=== PATIENT | male | born 1970 | race African-American/Black ===

== ENCOUNTER 2017-10-07 11:16 | Emergency (ER) | payer SELFPAY ==
[~2017-10-07] VITALS: Ht 180.3 cm; Wt 117.0 kg
[2017-10-07 11:18] VITALS: BP 140/90
== END 2017-10-07 15:43 | disposition left against medical advice (07) ==
LOC: ED 15:30
DX: M54.9 Dorsalgia, unspecified (principal); Z53.21 Procedure and treatment not carried out due to patient leaving prior to being seen by health care provider

== ENCOUNTER 2018-11-13 01:11 | Emergency (ER) | payer SELFPAY ==
[~2018-11-13] VITALS: Ht 182.9 cm; Wt 112.5 kg
[2018-11-13] MEDS ORDERED: HYDROmorphone 1 MG/ML, 1ML VIAL ONE (01:27)
[2018-11-13] MEDS ORDERED: ONDANSETRON 2MG/ML, 2ML ONE (01:27)
[2018-11-13] MEDS ORDERED: KETOROLAC 30 MG/1 ML ONE (01:28)
[2018-11-13] MEDS ORDERED: HYDROmorphone 1 MG/ML, 1ML AMP IVPush PRN (01:30)
[2018-11-13] MEDS ORDERED: SODIUM CHLORIDE FLUSH 10ML SYR IVF ONE (01:30)
[2018-11-13] MEDS ORDERED: KETOROLAC 30 MG/1 ML IVPush ONE (01:30)
[2018-11-13] MEDS ORDERED: ONDANSETRON 2MG/ML, 2ML IVPush ONE (01:30)
[2018-11-13] MEDS ORDERED: SODIUM CHLORIDE 0.9% 1,000ML IVBOLUS ONE (01:30)
--- NOTE | 2018-11-13 01:40 | NUR ---
PT MEDICATED PER OCT. RESTING ON GURNEY, MONITORS APPLIED, SIDERAILS UP X2, CALL LIGHT WITHIN REACH.
[2018-11-13 01:43] LABS: BASOPHILS # (AUTO) 0.03 x10^3/uL (0-0.1); BASOPHILS % (AUTO) 0 % (0-1); EOSINOPHILS # (AUTO) 0.08 x10^3/uL (0-0.4); EOSINOPHILS % (AUTO) 1 % (1-7); LYMPHOCYTES # (AUTO) 2.33 x10^3/uL (1-3.4); LYMPHOCYTES % (AUTO) 16 % (22-44); MD NO; MEAN CORPUSCULAR HEMOGLOBIN 26.7 pg (27.5-34.5); MEAN PLATELET VOLUME 7.9 fL (7.4-10.4); MONOCYTES # (AUTO) 0.51 x10^3/uL (0.2-0.8); MONOCYTES % (AUTO) 4 % (2-9); NEUTROPHILS # (AUTO) 11.38 x10^3/uL (1.8-6.8); NEUTROPHILS % (AUTO) 79 % (42-75); PLATELET COUNT 326 x10^3/uL (130-400); RED BLOOD COUNT 5.91 x10^6/uL (4.38-5.82); RED CELL DISTRIBUTION WIDTH 14.9 % (9.4-14.8)
[2018-11-13 01:54] LABS: ALANINE AMINOTRANSFERASE 23 U/L (12-78); ALBUMIN 4.1 g/dL (3.4-5.0); ANION GAP 8 mmol/L (5-15); CALCIUM 9.3 mg/dL (8.5-10.1); CHLORIDE 109 mmol/L (98-107); CREATININE 1.43 mg/dL (0.7-1.3)
[2018-11-13 01:57] LABS: ALKALINE PHOSPHATASE 78 U/L (45-117); BILIRUBIN,TOTAL 0.5 mg/dL (0.2-1.0); TOTAL PROTEIN 7.8 g/dL (6.4-8.2)
--- NOTE | 2018-11-13 02:08 | NUR ---
PT TO CT. URINE SAMPLE TAKEN TO LAB
--- NOTE | 2018-11-13 02:17 | NUR ---
PT RESTING ON GURNEY, STATED PAIN IS ALOT BETTER, MONITOS IN PLACE, SIDERAILS UP X2, CALL LIGHT WITHIN REACH. AWAITING CT AND URINE RESULT
[2018-11-13 02:18] LABS: MICROSCOPIC INDICATED
[2018-11-13 02:25] LABS: CULTURE INDICATED? NO
[2018-11-13 03:16] VITALS: BP 128/84
== END 2018-11-13 03:25 | disposition home or self-care (01) ==
LOC: ED 02:41
DX: N13.2 Hydronephrosis with renal and ureteral calculous obstruction (principal)
CPT/HCPCS: 36415; 74176; 80053; 81001; 83690; 85025; 93005; 96374; 96375; 99284; J1170; J1885; J2405; J7030

== ENCOUNTER 2020-08-11 10:19 | Inpatient (IN) | payer MEDICAID, OTHER ==
[~2020-08-11] VITALS: Ht 180.3 cm; Wt 105.8 kg
--- NOTE | 2020-08-11 10:31 | NUR ---
EKG COMPLETED IN TRIAGE.
--- NOTE | 2020-08-11 10:46 | NUR ---
PT CAME IN CO OF SOB, WEAKNESS, AND BODY ACHES X 4 DAYS. PT STATES "WHENEVER I WALK AROUND I GET REALLY SOB AND TIRED". PT CONNECTED TO ALL MONITORING EQUIPMENT. BLANKET PROVIDED. PROVIDER IS BEDSIDE FOR ASSESSMENT.
[2020-08-11] MEDS ORDERED: SODIUM CHLORIDE FLUSH 10ML SYR IVF ONE (11:00)
[2020-08-11] MEDS ORDERED: SODIUM CHLORIDE 0.9% 1,000 ML IV ONE (11:00)
--- NOTE | 2020-08-11 11:00 | NUR ---
IV STARTED. LABS DRAWN. NAD.
[2020-08-11 11:10] LABS: BASOPHILS % (AUTO) 1 % (0-1); EOSINOPHILS % (AUTO) 2 % (1-7); LYMPHOCYTES % (AUTO) 28 % (22-44); MEAN CORPUSCULAR HEMOGLOBIN 26.3 pg (27.5-34.5); MEAN CORPUSCULAR HGB CONC 32.7 g/dL (33.2-36.2); MONOCYTES % (AUTO) 7 % (2-9); NEUTROPHILS % (AUTO) 63 % (42-75); PLATELET COUNT 315 x10^3/uL (130-400); RED BLOOD COUNT 5.31 x10^6/uL (4.38-5.82); RED CELL DISTRIBUTION WIDTH 15.2 % (9.4-14.8)
[2020-08-11 11:13] LABS: MD NO
[2020-08-11 11:17] LABS: ALANINE AMINOTRANSFERASE 33 U/L (12-78); ALBUMIN 3.2 g/dL (3.4-5.0); ANION GAP 4 mmol/L (5-15); CALCIUM 8.7 mg/dL (8.5-10.1); CHLORIDE 115 mmol/L (98-107)
[2020-08-11 11:20] LABS: ALKALINE PHOSPHATASE 84 U/L (45-117); BILIRUBIN,TOTAL 0.7 mg/dL (0.2-1.0); CREATININE 1.05 mg/dL (0.7-1.3); TOTAL PROTEIN 6.8 g/dL (6.4-8.2)
[2020-08-11 11:30] LABS: RAPID INFLUENZA A Negative (Negative); RAPID INFLUENZA B Negative (Negative)
[2020-08-11] MEDS ORDERED: OMNIPAQUE 350 MG/ML, 75ML BOTTLE ONE (11:33)
--- NOTE | 2020-08-11 12:20 | NUR ---
PT RESTING IN [facility]. ON CELL PHONE. NAD
[2020-08-11 13:03] LABS: TROPONIN I 0.187 ng/mL (0.000-0.045)
[2020-08-11] MEDS ORDERED: SODIUM CHLORIDE FLUSH 10ML SYR IVF PRN (13:30)
[2020-08-11 14:01] VITALS: BP 98/76
[2020-08-11] MEDS ORDERED: POLYETHYLENE GLYCOL 17 GM PACKET PO PRN (15:30)
[2020-08-11] MEDS ORDERED: GUAIFENESIN/DM 200-20MG, 10ML UDC PO PRN (15:30)
[2020-08-11] MEDS ORDERED: ENALAPRILAT 1.25 MG/ML, 2ML IVPush PRN (15:30)
[2020-08-11] MEDS ORDERED: ACETAMINOPHEN 325 MG TABLET PO PRN (15:30)
[2020-08-11] MEDS: ASCORBIC ACID 500 MG TABLET PO SCH (16:57)
[2020-08-11] MEDS ORDERED: MAGNESIUM SULFATE PMX 2GM/50ML 50 ML IV ONE (17:00)
[2020-08-11] MEDS ORDERED: FUROSEMIDE 20 MG/2 ML IV ONE (17:00)
[2020-08-11] MEDS ORDERED: HEPARIN 5,000 UNITS/ML, 1ML ONE (17:16)
[2020-08-11] MEDS: HEPARIN 5,000 UNITS/ML, 1ML SQ SCH (17:35)
[2020-08-11 17:44] LABS: TROPONIN I 0.213 ng/mL (0.000-0.045)
[2020-08-11 20:00] VITALS: BP 102/80
[2020-08-11] MEDS ORDERED: FILTER 0.22 MICRON FOR AMIODARONE IV PRN (20:30)
[2020-08-11] MEDS ORDERED: AMIODARONE 150 MG in DEXTROSE 5% 100 ML IV ONE (20:30)
[2020-08-11] MEDS ORDERED: DEXTROSE 50%, 50ML SYRINGE IVPush ONE (20:30)
[2020-08-12 00:23] VITALS: BP 128/93
[2020-08-12] MEDS: HEPARIN 5,000 UNITS/ML, 1ML SQ SCH ×3 (01:47→16:37)
[2020-08-12 01:55] VITALS: BP 130/90
[2020-08-12 05:44] LABS: BASOPHILS % (AUTO) 0 % (0-1); EOSINOPHILS % (AUTO) 1 % (1-7); LYMPHOCYTES % (AUTO) 23 % (22-44); MEAN CORPUSCULAR HEMOGLOBIN 26.2 pg (27.5-34.5); MEAN CORPUSCULAR HGB CONC 32.8 g/dL (33.2-36.2); MEAN PLATELET VOLUME 8.5 fL (7.4-10.4); MONOCYTES % (AUTO) 7 % (2-9); NEUTROPHILS % (AUTO) 69 % (42-75); PLATELET COUNT 356 x10^3/uL (130-400); RED BLOOD COUNT 5.35 x10^6/uL (4.38-5.82); RED CELL DISTRIBUTION WIDTH 15.2 % (9.4-14.8)
[2020-08-12 05:49] LABS: MD NO
[2020-08-12 05:54] LABS: ALBUMIN 3.2 g/dL (3.4-5.0); ANION GAP 7 mmol/L (5-15); CALCIUM 9.1 mg/dL (8.5-10.1); CHLORIDE 113 mmol/L (98-107)
[2020-08-12 06:07] LABS: ALANINE AMINOTRANSFERASE 28 U/L (12-78); ALKALINE PHOSPHATASE 81 U/L (45-117); BILIRUBIN,TOTAL 0.8 mg/dL (0.2-1.0); CHOL/HDL RATIO 4.3; CHOLESTEROL, TOTAL 173 mg/dL (140-239); CREATININE 1.02 mg/dL (0.7-1.3); HDL CHOL % 23 % (26-37); HDL CHOLESTEROL (DIRECT) 40 mg/dL (40-60); LDL CHOLESTEROL,CALCULATED 113 mg/dL (54-169); LDL/HDL RATIO 2.8 (0.5-3.0); TOTAL PROTEIN 6.8 g/dL (6.4-8.2); TRIGLYCERIDES 102 mg/dL (50-200); VLDL CHOLESTEROL 20 mg/dL (0-25)
[2020-08-12] MEDS ORDERED: FUROSEMIDE 20 MG/2 ML IV ONE (07:30)
[2020-08-12 08:18] VITALS: BP 134/99
[2020-08-12] MEDS: ZINC SULFATE 220 MG CAPSULE PO SCH (08:48)
[2020-08-12] MEDS: THIAMINE 100MG TABLET PO SCH (08:49)
[2020-08-12] MEDS: CHOLECALCIFEROL 5,000u TAB PO SCH (08:49)
[2020-08-12] MEDS: ASCORBIC ACID 500 MG TABLET PO SCH ×2 (08:49→16:37)
[2020-08-12 09:22] LABS: TROPONIN I 0.128 ng/mL (0.000-0.045)
[2020-08-12 10:34] LABS: MICROSCOPIC AUTO
[2020-08-12 10:43] LABS: AMPHETAMINE SCREEN, URINE Negative (Negative); BARBITURATE SCREEN, URINE Negative (Negative); BENZODIAZEPINE SCREEN, URINE Negative (Negative); CANNABINOID SCREEN, URINE Positive (Negative); COCAINE SCREEN, URINE Negative (Negative); METHADONE SCREEN, URINE Negative (Negative); OPIATE SCREEN, URINE Negative (Negative)
[2020-08-12 12:33] VITALS: BP 142/98
[2020-08-12] MEDS: AMIODARONE 450 MG in DEXTROSE 5% 241 ML IV PRN (12:46)
[2020-08-12 14:06] LABS: TROPONIN I 0.128 ng/mL (0.000-0.045)
[2020-08-12 18:46] VITALS: BP 136/99
[2020-08-13 00:18] VITALS: BP 120/80
[2020-08-13] MEDS: HEPARIN 5,000 UNITS/ML, 1ML SQ SCH ×2 (00:50→10:19)
[2020-08-13] MEDS: AMIODARONE 450 MG in DEXTROSE 5% 241 ML IV PRN ×2 (03:01→21:56)
[2020-08-13 06:05] LABS: BASOPHILS % (AUTO) 0 % (0-1); EOSINOPHILS % (AUTO) 1 % (1-7); LYMPHOCYTES % (AUTO) 18 % (22-44); MEAN CORPUSCULAR HEMOGLOBIN 25.6 pg (27.5-34.5); MEAN CORPUSCULAR HGB CONC 32.6 g/dL (33.2-36.2); MEAN PLATELET VOLUME 8.5 fL (7.4-10.4); MONOCYTES % (AUTO) 8 % (2-9); NEUTROPHILS % (AUTO) 73 % (42-75); PLATELET COUNT 331 x10^3/uL (130-400); RED BLOOD COUNT 5.59 x10^6/uL (4.38-5.82); RED CELL DISTRIBUTION WIDTH 15.5 % (9.4-14.8)
[2020-08-13 06:07] LABS: MD NO
[2020-08-13 06:20] LABS: CHLORIDE 110 mmol/L (98-107)
[2020-08-13 06:28] LABS: ALANINE AMINOTRANSFERASE 27 U/L (12-78); ALKALINE PHOSPHATASE 83 U/L (45-117); ANION GAP 6 mmol/L (5-15); BILIRUBIN,TOTAL 1.2 mg/dL (0.2-1.0); CALCIUM 8.9 mg/dL (8.5-10.1); CREATININE 1.12 mg/dL (0.7-1.3); TOTAL PROTEIN 6.8 g/dL (6.4-8.2)
[2020-08-13 07:55] VITALS: BP 136/96
[2020-08-13] MEDS: ASCORBIC ACID 500 MG TABLET PO SCH ×2 (10:19→16:54)
[2020-08-13] MEDS: ZINC SULFATE 220 MG CAPSULE PO SCH (10:19)
[2020-08-13] MEDS: CHOLECALCIFEROL 5,000u TAB PO SCH (10:19)
[2020-08-13] MEDS: THIAMINE 100MG TABLET PO SCH (10:20)
[2020-08-13] MEDS ORDERED: SODIUM CHLORIDE 0.9% 1,000 ML IV SCH (11:00)
[2020-08-13] MEDS ORDERED: CHLORHEXIDINE 15 ML UDC MM PRN (11:30)
[2020-08-13] MEDS ORDERED: INSULIN LISPRO 100 UNITS/ML, PEN SQ-INSULIN SCH (11:30)
[2020-08-13 12:02] LABS: BASOPHILS % (AUTO) 1 % (0-1); EOSINOPHILS % (AUTO) 1 % (1-7); LYMPHOCYTES % (AUTO) 21 % (22-44); MEAN CORPUSCULAR HEMOGLOBIN 26.6 pg (27.5-34.5); MEAN CORPUSCULAR HGB CONC 33.1 g/dL (33.2-36.2); MEAN PLATELET VOLUME 7.9 fL (7.4-10.4); MONOCYTES % (AUTO) 8 % (2-9); NEUTROPHILS % (AUTO) 70 % (42-75); PLATELET COUNT 315 x10^3/uL (130-400); RED BLOOD COUNT 5.43 x10^6/uL (4.38-5.82); RED CELL DISTRIBUTION WIDTH 15.2 % (9.4-14.8)
[2020-08-13 12:11] LABS: MD NO
[2020-08-13 12:14] LABS: INTERNATIONAL NORMALIZED RATIO 1.13 (0.93-1.1)
[2020-08-13 12:15] LABS: CHLORIDE 110 mmol/L (98-107)
[2020-08-13 12:23] LABS: ALANINE AMINOTRANSFERASE 25 U/L (12-78); ALKALINE PHOSPHATASE 78 U/L (45-117); ANION GAP 7 mmol/L (5-15); BILIRUBIN,TOTAL 0.8 mg/dL (0.2-1.0); CALCIUM 9.1 mg/dL (8.5-10.1); CREATININE 1.19 mg/dL (0.7-1.3); TOTAL PROTEIN 6.6 g/dL (6.4-8.2)
[2020-08-13 12:44] VITALS: BP 123/81
[2020-08-13 15:18] LABS: MICROSCOPIC INDICATED
[2020-08-13] MEDS ORDERED: MIDAZOLAM 1 MG/ML, 5ML ONE (16:27)
[2020-08-13] MEDS ORDERED: VERAPAMIL 2.5 MG/ML, 2ML ONE (16:27)
[2020-08-13] MEDS ORDERED: BIVALIRUDIN 250 MG ONE (16:27)
[2020-08-13] MEDS ORDERED: LIDOCAINE-MPF 1%, 5ML ONE (16:27)
[2020-08-13] MEDS ORDERED: FENTANYL PF 100 MCG/2ML ONE (16:27)
[2020-08-13] MEDS ORDERED: HEPARIN 1,000 UNITS/ML, 10ML ONE (16:28)
[2020-08-13] MEDS: SODIUM CHLORIDE 0.9% 1,000 ML IV SCH ×2 (17:45→18:01)
[2020-08-13 21:29] VITALS: BP 131/85
[2020-08-13] MEDS: SODIUM CHLORIDE FLUSH 10ML SYR IVF SCH (21:56)
[2020-08-13] MEDS: MUPIROCIN OINT 2%, 22GM TP SCH (23:04)
[2020-08-14 04:45] VITALS: BP 145/107
[2020-08-14 04:47] VITALS: BP 131/79
[2020-08-14] MEDS: SODIUM CHLORIDE 0.9% 1,000 ML IV SCH ×2 (04:57→09:38)
[2020-08-14 05:26] LABS: BASOPHILS % (AUTO) 0 % (0-1); EOSINOPHILS % (AUTO) 1 % (1-7); LYMPHOCYTES % (AUTO) 19 % (22-44); MEAN CORPUSCULAR HEMOGLOBIN 26.3 pg (27.5-34.5); MEAN CORPUSCULAR HGB CONC 33.2 g/dL (33.2-36.2); MEAN PLATELET VOLUME 8.2 fL (7.4-10.4); MONOCYTES % (AUTO) 10 % (2-9); NEUTROPHILS % (AUTO) 70 % (42-75); PLATELET COUNT 301 x10^3/uL (130-400); RED BLOOD COUNT 5.23 x10^6/uL (4.38-5.82); RED CELL DISTRIBUTION WIDTH 15.4 % (9.4-14.8)
[2020-08-14] MEDS: MUPIROCIN OINT 2%, 22GM TP SCH (05:31)
[2020-08-14 05:35] LABS: CHLORIDE 111 mmol/L (98-107)
[2020-08-14 05:38] LABS: MD NO
[2020-08-14 05:42] LABS: ALANINE AMINOTRANSFERASE 25 U/L (12-78); ALBUMIN 2.7 g/dL (3.4-5.0); ALKALINE PHOSPHATASE 74 U/L (45-117); ANION GAP 6 mmol/L (5-15); BILIRUBIN,TOTAL 0.8 mg/dL (0.2-1.0); CALCIUM 8.5 mg/dL (8.5-10.1); CREATININE 0.95 mg/dL (0.7-1.3); TOTAL PROTEIN 6.2 g/dL (6.4-8.2)
[2020-08-14] MEDS ORDERED: MIDAZOLAM 10MG/2 ML ONE (06:49)
[2020-08-14] MEDS ORDERED: FENTANYL PF 250 MCG/5ML ONE ×4 (06:49→06:50)
[2020-08-14] MEDS ORDERED: MANNITOL PMX 20% 500 ML IVPB PRN (07:30)
[2020-08-14] MEDS ORDERED: VANCOMYCIN 1,600 MG in SODIUM CHLORIDE 0.9% 250 ML IVPB PRN (07:30)
[2020-08-14] MEDS ORDERED: ALBUMIN HUMAN 5% 500 ML IV PRN (07:30)
[2020-08-14] MEDS ORDERED: DEXMEDETOMIDINE 200 MCG in SODIUM CHLORIDE 0.9% 48 ML IV PRN ×2 (07:30→13:00)
[2020-08-14] MEDS ORDERED: CEFUROXIME 1.5 GM in SODIUM CHLORIDE 0.9% 50 ML IVPB PRN (07:30)
[2020-08-14] MEDS ORDERED: PHENYLEPHRINE 50 MG in SODIUM CHLORIDE 0.9% 245 ML IV PRN ×2 (07:30→12:30)
[2020-08-14] MEDS ORDERED: REGULAR INSULIN 100 UNITS in SODIUM CHLORIDE 0.9% 99 ML IV PRN ×2 (07:30→12:30)
[2020-08-14] MEDS ORDERED: POTASSIUM CHLORIDE 80 MEQ, SODIUM BICARBONATE 8.4% 10 MEQ, MAGNESIUM SULFATE 0.5 GM, LI... IV PRN (07:30)
[2020-08-14] MEDS ORDERED: EPINEPHRINE 5 MG in SODIUM CHLORIDE 0.9% 245 ML IV PRN (07:30)
[2020-08-14] MEDS ORDERED: CEFTRIAXONE PMX 1GM/50ML 50 ML IV SCH (08:30)
[2020-08-14] MEDS ORDERED: DOXYCYCLINE 50 MG/5 ML ORAL SUSP PO SCH (09:00)
[2020-08-14] MEDS: THIAMINE 100MG TABLET PO SCH (09:37)
[2020-08-14] MEDS: ASCORBIC ACID 500 MG TABLET PO SCH (09:37)
[2020-08-14] MEDS: SODIUM CHLORIDE FLUSH 10ML SYR IVF SCH ×2 (09:37→21:07)
[2020-08-14] MEDS: CHOLECALCIFEROL 5,000u TAB PO SCH (09:38)
[2020-08-14] MEDS: ZINC SULFATE 220 MG CAPSULE PO SCH (09:38)
[2020-08-14] MEDS ORDERED: CALCIUM CHLORIDE 10%, 10ML SYR ONE (09:56)
[2020-08-14] MEDS ORDERED: AMINOCAPROIC ACID 250 MG/ML, 20ML ONE ×2 (09:56)
[2020-08-14] MEDS ORDERED: PROTAMINE SULFATE 10 MG/ML, 25ML ONE ×2 (09:56)
[2020-08-14] MEDS ORDERED: PROPOFOL 10 MG/ML, 20ML ONE (09:56)
[2020-08-14] MEDS ORDERED: ROCURONIUM 10MG/ML,5ML ONE ×2 (09:56)
[2020-08-14] MEDS ORDERED: SODIUM BICARB 8.4%, 50ML SYRINGE ONE (11:19)
[2020-08-14 11:50] LABS: GLUCOSE BY BLOOD GAS ANALYZER 202 mg/dL (70-110); HEMOGLOBIN BY BLOOD GAS ANALYZ 11.9 g/dL (14.0-18.0); POTASSIUM BY BLOOD GAS ANALYZR 3.2 mmol/L (3.6-5.5)
[2020-08-14 11:55] LABS: MEAN CORPUSCULAR HEMOGLOBIN 25.7 pg (27.5-34.5); MEAN CORPUSCULAR HGB CONC 32.2 g/dL (33.2-36.2); MEAN PLATELET VOLUME 7.9 fL (7.4-10.4); PLATELET COUNT 208 x10^3/uL (130-400); RED BLOOD COUNT 4.27 x10^6/uL (4.38-5.82); RED CELL DISTRIBUTION WIDTH 15.5 % (9.4-14.8)
[2020-08-14 12:02] LABS: INTERNATIONAL NORMALIZED RATIO 1.36 (0.93-1.1); PROTHROMBIN TIME 14.4 Seconds (9.6-11.5)
[2020-08-14] MEDS ORDERED: GLUCAGON 1 MG IVPush PRN (12:30)
[2020-08-14] MEDS ORDERED: SODIUM CHLORIDE 0.9% 1,000 ML IV SCH (12:30)
[2020-08-14] MEDS: KSCALE TO 4.5 IV SCH ×2 (12:30→17:41)
[2020-08-14] MEDS ORDERED: DEXTROSE 50%, 50ML SYRINGE IVPush PRN (12:30)
[2020-08-14] MEDS ORDERED: BISACODYL 10 MG SUPP PR PRN (12:30)
[2020-08-14] MEDS ORDERED: DEXTROSE 4 GM TAB.CHEW PO PRN (12:30)
[2020-08-14] MEDS ORDERED: PHARMACY INSTRUCTION (CSU AMIODARONE) MC SCH (12:30)
[2020-08-14] MEDS ORDERED: FENTANYL PF 100 MCG/2ML IVPush PRN (12:30)
[2020-08-14] MEDS ORDERED: BISACODYL 5 MG EC TABLET PO PRN (12:30)
[2020-08-14] MEDS ORDERED: EPINEPHRINE 5 MG in SODIUM CHLORIDE 0.9% 245 ML IVPB PRN (12:30)
[2020-08-14] MEDS ORDERED: ACETAMINOPHEN 325 MG TABLET PO PRN (12:30)
[2020-08-14] MEDS ORDERED: ACETAMINOPHEN 650 MG SUPP PR PRN (12:30)
[2020-08-14] MEDS ORDERED: MIDAZOLAM 1 MG/ML, 2ML IV PRN (12:30)
[2020-08-14] MEDS ORDERED: DOBUTAMINE 250 MG in SODIUM CHLORIDE 0.9% 230 ML IV PRN (13:00)
[2020-08-14] MEDS ORDERED: ONDANSETRON 2MG/ML, 2ML IVPush PRN (13:00)
[2020-08-14] MEDS ORDERED: LACTATED RINGERS 500 ML IVBOLUS PRN (13:00)
[2020-08-14] MEDS ORDERED: NITROGLYCERIN/D5W PMX 250 ML IV PRN (13:00)
[2020-08-14] MEDS ORDERED: INSULIN LISPRO 100 UNITS/ML, PEN SQ-INSULIN PRN (13:00)
[2020-08-14] MEDS ORDERED: VASOPRESSIN 20 UNIT in SODIUM CHLORIDE 0.9% 99 ML IV PRN (13:00)
[2020-08-14] MEDS ORDERED: AMIODARONE 450 MG in DEXTROSE 5% 241 ML IV PRN (13:00)
[2020-08-14] MEDS: SODIUM BICARB 8.4%, 50ML SYRINGE IVPush PRN (13:15)
[2020-08-14] MEDS: MAGNESIUM SULFATE 1 GM in SODIUM CHLORIDE 0.9% 50 ML IV SCH (13:15)
[2020-08-14] MEDS ORDERED: POTASSIUM CHLORIDE 30 MEQ in SODIUM CHLORIDE 0.9% 100 ML IV ONE (13:30)
[2020-08-14] MEDS: OXYcodone IR 5MG TABLET PO PRN ×2 (16:19→23:42)
[2020-08-14] MEDS ORDERED: FUROSEMIDE 20 MG/2 ML IV ONE (18:00)
[2020-08-14] MEDS: INSULIN LISPRO 100 UNITS/ML, PEN SQ-INSULIN SCH (20:00)
[2020-08-14] MEDS: CEFUROXIME 1.5 GM in SODIUM CHLORIDE 0.9% 50 ML IVPB SCH (20:03)
[2020-08-14] MEDS: HYDROcodone/APAP 5/325 TABLET PO PRN (20:03)
[2020-08-14] MEDS: VANCOMYCIN 1,600 MG in SODIUM CHLORIDE 0.9% 250 ML IV SCH (21:07)
[2020-08-14] MEDS: DOCUSATE 100 MG CAPSULE PO SCH (21:08)
[2020-08-14] MEDS: MUPIROCIN OINT 2%, 22GM NAS SCH (21:08)
[2020-08-15] MEDS: KSCALE TO 4.5 IV SCH ×4 (00:30→18:30)
[2020-08-15] MEDS: INSULIN LISPRO 100 UNITS/ML, PEN SQ-INSULIN SCH ×4 (01:40→20:00)
[2020-08-15] MEDS: HYDROcodone/APAP 5/325 TABLET PO PRN ×4 (03:38→21:15)
[2020-08-15 05:00] LABS: BASOPHILS % (AUTO) 0 % (0-1); EOSINOPHILS % (AUTO) 0 % (1-7); LYMPHOCYTES % (AUTO) 6 % (22-44); MEAN CORPUSCULAR HEMOGLOBIN 26.2 pg (27.5-34.5); MEAN CORPUSCULAR HGB CONC 33.1 g/dL (33.2-36.2); MEAN PLATELET VOLUME 7.7 fL (7.4-10.4); MONOCYTES % (AUTO) 9 % (2-9); NEUTROPHILS % (AUTO) 85 % (42-75); PLATELET COUNT 179 x10^3/uL (130-400); RED BLOOD COUNT 4.73 x10^6/uL (4.38-5.82); RED CELL DISTRIBUTION WIDTH 15.4 % (9.4-14.8)
[2020-08-15 05:10] LABS: INTERNATIONAL NORMALIZED RATIO 1.21 (0.93-1.1); PROTHROMBIN TIME 12.8 Seconds (9.6-11.5)
[2020-08-15 05:12] LABS: ALBUMIN 2.7 g/dL (3.4-5.0); ANION GAP 4 mmol/L (5-15); CALCIUM 8.2 mg/dL (8.5-10.1); CHLORIDE 108 mmol/L (98-107); CREATININE 0.81 mg/dL (0.7-1.3)
[2020-08-15 05:46] LABS: MD SCAN
[2020-08-15] MEDS: ASPIRIN 81 MG TABLET EC PO SCH (07:58)
[2020-08-15] MEDS: DOCUSATE 100 MG CAPSULE PO SCH ×2 (07:58→20:25)
[2020-08-15] MEDS: CEFUROXIME 1.5 GM in SODIUM CHLORIDE 0.9% 50 ML IVPB SCH (07:59)
[2020-08-15] MEDS: SODIUM CHLORIDE FLUSH 10ML SYR IVF SCH ×3 (08:01→20:27)
[2020-08-15] MEDS: MUPIROCIN OINT 2%, 22GM NAS SCH ×2 (08:01→20:24)
[2020-08-15] MEDS: VANCOMYCIN 1,600 MG in SODIUM CHLORIDE 0.9% 250 ML IV SCH (08:53)
[2020-08-15] MEDS ORDERED: CHLORHEXIDINE 15 ML UDC MM SCH (09:00)
[2020-08-15] MEDS ORDERED: MAGNESIUM HYDROXIDE 8%, 30ML UDC PO PRN (09:30)
[2020-08-15] MEDS: FUROSEMIDE 20 MG/2 ML IV SCH (09:40)
[2020-08-15] MEDS: WARFARIN MODERAT DOSE PROTOCOL XX SCH (12:00)
[2020-08-15] MEDS: MAGNESIUM SULFATE 1 GM in SODIUM CHLORIDE 0.9% 50 ML IV SCH (13:16)
[2020-08-15] MEDS ORDERED: WARFARIN 7.5 MG TABLET PO-COUM ONE (18:00)
[2020-08-15] MEDS: CHLORHEXIDINE 15 ML UDC MM SCH (18:35)
[2020-08-15] MEDS: POTASSIUM CHLORIDE 10 MEQ TABLET.ER PO SCH (18:35)
[2020-08-15] MEDS: METOPROLOL TARTRATE 25 MG TAB PO SCH (18:36)
[2020-08-16] MEDS: INSULIN LISPRO 100 UNITS/ML, PEN SQ-INSULIN SCH ×4 (02:00→21:10)
[2020-08-16 05:08] LABS: BASOPHILS % (AUTO) 0 % (0-1); EOSINOPHILS % (AUTO) 0 % (1-7); LYMPHOCYTES % (AUTO) 11 % (22-44); MEAN CORPUSCULAR HGB CONC 32.3 g/dL (33.2-36.2); MEAN PLATELET VOLUME 7.8 fL (7.4-10.4); MONOCYTES % (AUTO) 8 % (2-9); NEUTROPHILS % (AUTO) 80 % (42-75); PLATELET COUNT 188 x10^3/uL (130-400); RED BLOOD COUNT 4.49 x10^6/uL (4.38-5.82); RED CELL DISTRIBUTION WIDTH 15.6 % (9.4-14.8)
[2020-08-16 05:09] LABS: MD NO
[2020-08-16] MEDS: METOPROLOL TARTRATE 25 MG TAB PO SCH ×2 (05:10→18:12)
[2020-08-16] MEDS: CHLORHEXIDINE 15 ML UDC MM SCH ×2 (05:10→18:11)
[2020-08-16 05:19] LABS: INTERNATIONAL NORMALIZED RATIO 1.08 (0.93-1.1); PROTHROMBIN TIME 11.4 Seconds (9.6-11.5)
[2020-08-16 05:23] LABS: ANION GAP 5 mmol/L (5-15); CALCIUM 8.8 mg/dL (8.5-10.1); CHLORIDE 104 mmol/L (98-107); CREATININE 0.91 mg/dL (0.7-1.3)
[2020-08-16 07:30] VITALS: BP 129/74
[2020-08-16] MEDS: DOCUSATE 100 MG CAPSULE PO SCH ×2 (08:39→20:40)
[2020-08-16] MEDS: ASPIRIN 81 MG TABLET EC PO SCH (08:39)
[2020-08-16] MEDS: POTASSIUM CHLORIDE 10 MEQ TABLET.ER PO SCH ×2 (08:39→18:11)
[2020-08-16] MEDS: MUPIROCIN OINT 2%, 22GM NAS SCH ×2 (08:39→20:40)
[2020-08-16] MEDS: SODIUM CHLORIDE FLUSH 10ML SYR IVF SCH ×4 (08:40→21:00)
[2020-08-16] MEDS: FUROSEMIDE 20 MG/2 ML IV SCH (08:40)
[2020-08-16] MEDS ORDERED: FUROSEMIDE 20 MG/2 ML IV SCH (09:00)
[2020-08-16] MEDS: HYDROcodone/APAP 5/325 TABLET PO PRN (09:54)
[2020-08-16 11:17] VITALS: BP 107/61
[2020-08-16] MEDS: SPIRONOLACTONE 25 MG TABLET PO SCH (11:18)
[2020-08-16] MEDS: AMIODARONE 200 MG TABLET PO SCH (11:18)
[2020-08-16] MEDS: WARFARIN MODERAT DOSE PROTOCOL XX SCH (11:47)
[2020-08-16] MEDS: MAGNESIUM SULFATE 1 GM in SODIUM CHLORIDE 0.9% 50 ML IV SCH (13:34)
[2020-08-16 13:59] VITALS: BP 110/66
[2020-08-16] MEDS: HYDROcodone/APAP 10/325 MG TABLET PO PRN ×2 (14:05→20:49)
[2020-08-16] MEDS ORDERED: WARFARIN 7.5 MG TABLET PO-COUM ONE (18:00)
[2020-08-16 18:10] VITALS: BP 129/76
[2020-08-16 19:54] VITALS: BP 124/78
[2020-08-17] MEDS: INSULIN LISPRO 100 UNITS/ML, PEN SQ-INSULIN SCH ×4 (02:00→20:00)
[2020-08-17 02:03] VITALS: BP 106/64
[2020-08-17] MEDS: HYDROcodone/APAP 10/325 MG TABLET PO PRN ×4 (03:11→21:42)
[2020-08-17 04:25] LABS: BASOPHILS % (AUTO) 0 % (0-1); EOSINOPHILS % (AUTO) 1 % (1-7); LYMPHOCYTES % (AUTO) 17 % (22-44); MD NO; MEAN CORPUSCULAR HEMOGLOBIN 26.3 pg (27.5-34.5); MEAN CORPUSCULAR HGB CONC 33.3 g/dL (33.2-36.2); MEAN PLATELET VOLUME 7.9 fL (7.4-10.4); MONOCYTES % (AUTO) 10 % (2-9); NEUTROPHILS % (AUTO) 72 % (42-75); PLATELET COUNT 194 x10^3/uL (130-400); RED BLOOD COUNT 4.37 x10^6/uL (4.38-5.82); RED CELL DISTRIBUTION WIDTH 15.9 % (9.4-14.8)
[2020-08-17 04:27] LABS: ANION GAP 3 mmol/L (5-15); CALCIUM 8.5 mg/dL (8.5-10.1); CHLORIDE 104 mmol/L (98-107); CREATININE 0.78 mg/dL (0.7-1.3); INTERNATIONAL NORMALIZED RATIO 1.21 (0.93-1.1); PROTHROMBIN TIME 12.8 Seconds (9.6-11.5)
[2020-08-17] MEDS: CHLORHEXIDINE 15 ML UDC MM SCH (05:48)
[2020-08-17] MEDS: METOPROLOL TARTRATE 25 MG TAB PO SCH ×2 (05:49→18:33)
[2020-08-17 07:27] VITALS: BP 132/81
[2020-08-17] MEDS: ASPIRIN 81 MG TABLET EC PO SCH (08:25)
[2020-08-17] MEDS: DOCUSATE 100 MG CAPSULE PO SCH ×2 (08:25→21:42)
[2020-08-17] MEDS: SPIRONOLACTONE 25 MG TABLET PO SCH (08:25)
[2020-08-17] MEDS: POTASSIUM CHLORIDE 10 MEQ TABLET.ER PO SCH ×2 (08:25→18:32)
[2020-08-17] MEDS: AMIODARONE 200 MG TABLET PO SCH (08:25)
[2020-08-17] MEDS: SODIUM CHLORIDE FLUSH 10ML SYR IVF SCH ×4 (08:26→21:43)
[2020-08-17] MEDS: MUPIROCIN OINT 2%, 22GM NAS SCH ×2 (08:26→21:42)
[2020-08-17] MEDS: FUROSEMIDE 20 MG/2 ML IV SCH ×2 (08:26→09:15)
[2020-08-17] MEDS ORDERED: FUROSEMIDE 20 MG/2 ML IV ONE (09:00)
[2020-08-17] MEDS: WARFARIN MODERAT DOSE PROTOCOL XX SCH (10:46)
[2020-08-17 15:32] VITALS: BP 118/70
[2020-08-17] MEDS ORDERED: WARFARIN 5 MG TABLET PO-COUM ONE (18:00)
[2020-08-17 20:02] VITALS: BP 134/82
[2020-08-18] MEDS: HYDROcodone/APAP 10/325 MG TABLET PO PRN ×2 (01:03→09:42)
[2020-08-18 01:48] VITALS: BP_SYST 109; BP_SYST 128; BP_DIAS 74
[2020-08-18] MEDS: INSULIN LISPRO 100 UNITS/ML, PEN SQ-INSULIN SCH ×2 (02:00→08:00)
[2020-08-18 05:11] LABS: BASOPHILS % (AUTO) 1 % (0-1); EOSINOPHILS % (AUTO) 3 % (1-7); LYMPHOCYTES % (AUTO) 23 % (22-44); MEAN CORPUSCULAR HEMOGLOBIN 26.1 pg (27.5-34.5); MEAN CORPUSCULAR HGB CONC 32.6 g/dL (33.2-36.2); MEAN PLATELET VOLUME 7.8 fL (7.4-10.4); MONOCYTES % (AUTO) 11 % (2-9); NEUTROPHILS % (AUTO) 63 % (42-75); PLATELET COUNT 227 x10^3/uL (130-400); RED BLOOD COUNT 4.29 x10^6/uL (4.38-5.82); RED CELL DISTRIBUTION WIDTH 15.6 % (9.4-14.8)
[2020-08-18 05:15] LABS: INTERNATIONAL NORMALIZED RATIO 1.63 (0.93-1.1); MD NO; PROTHROMBIN TIME 17.2 Seconds (9.6-11.5)
[2020-08-18 05:19] LABS: ANION GAP 4 mmol/L (5-15); CALCIUM 8.5 mg/dL (8.5-10.1); CHLORIDE 105 mmol/L (98-107)
[2020-08-18 05:22] LABS: CREATININE 0.74 mg/dL (0.7-1.3)
[2020-08-18 05:56] VITALS: BP 117/75
[2020-08-18] MEDS: METOPROLOL TARTRATE 25 MG TAB PO SCH (05:58)
[2020-08-18 07:56] VITALS: BP 135/83
[2020-08-18] MEDS: SODIUM CHLORIDE FLUSH 10ML SYR IVF SCH ×2 (09:00→09:43)
[2020-08-18] MEDS ORDERED: WARF2.5T32 PO (09:23)
[2020-08-18] MEDS ORDERED: FURO-93 PO (09:23)
[2020-08-18] MEDS ORDERED: MORP-29 PO ×2 (09:23→13:01)
[2020-08-18] MEDS ORDERED: POTA10TA5 PO (09:23)
[2020-08-18] MEDS ORDERED: ASPI81TA45 PO (09:23)
[2020-08-18] MEDS ORDERED: METO25TA35 PO (09:23)
[2020-08-18] MEDS ORDERED: SPIR25TA PO (09:23)
[2020-08-18 09:40] VITALS: BP 113/73
[2020-08-18] MEDS: ASPIRIN 81 MG TABLET EC PO SCH (09:41)
[2020-08-18] MEDS: POTASSIUM CHLORIDE 10 MEQ TABLET.ER PO SCH (09:41)
[2020-08-18] MEDS: SPIRONOLACTONE 25 MG TABLET PO SCH (09:42)
[2020-08-18] MEDS: DOCUSATE 100 MG CAPSULE PO SCH (09:42)
[2020-08-18] MEDS: AMIODARONE 200 MG TABLET PO SCH (09:42)
[2020-08-18] MEDS: FUROSEMIDE 20 MG/2 ML IV SCH (09:43)
[2020-08-18] MEDS: MUPIROCIN OINT 2%, 22GM NAS SCH (09:45)
[2020-08-18] MEDS: WARFARIN MODERAT DOSE PROTOCOL XX SCH (11:40)
[2020-08-18 12:51] VITALS: BP 127/81
[2020-08-18] MEDS ORDERED: WARFARIN 5 MG TABLET PO-COUM ONE (18:00)
== END 2020-08-18 14:14 | disposition home or self-care (01) | DRG 216 ==
LOC: ED 12:47 → SUATTDRO 13:31 → EDIP 13:40 → 4WST 13:57 → 5SO 08-13 06:42 → CCU 08-14 07:53 → 5SO 08-16 05:56 → DCLOUNGE 08-18 13:36
PROVIDERS: ADMIT Internal Medicine; ATTEND Family Medicine
PROC: 02UG0JZ Supplement Mitral Valve with Synthetic Substitute, Open Approach (ICD-10-PCS; 2020-08-14)
PROC: 02Q50ZZ Repair Atrial Septum, Open Approach (ICD-10-PCS; 2020-08-14)
PROC: 02580ZZ Destruction of Conduction Mechanism, Open Approach (ICD-10-PCS; 2020-08-14)
PROC: 02L70ZK Occlusion of Left Atrial Appendage, Open Approach (ICD-10-PCS; 2020-08-14)
PROC: 03HY32Z Insertion of Monitoring Device into Upper Artery, Percutaneous Approach (ICD-10-PCS; 2020-08-14)
PROC: 5A1221Z Performance of Cardiac Output, Continuous (ICD-10-PCS; 2020-08-14)
PROC: 0BH17EZ Insertion of Endotracheal Airway into Trachea, Via Natural or Artificial Opening (ICD-10-PCS; 2020-08-14)
PROC: 5A1935Z Respiratory Ventilation, Less than 24 Consecutive Hours (ICD-10-PCS; 2020-08-14)
PROC: B245ZZ4 Ultrasonography of Left Heart, Transesophageal (ICD-10-PCS; 2020-08-14)
PROC: 02B70ZZ Excision of Left Atrium, Open Approach (ICD-10-PCS; principal; 2020-08-14 07:30)
PROC: 4A023N7 Measurement of Cardiac Sampling and Pressure, Left Heart, Percutaneous Approach (ICD-10-PCS; 2020-08-17)
PROC: B2111ZZ Fluoroscopy of Multiple Coronary Arteries using Low Osmolar Contrast (ICD-10-PCS; 2020-08-17)
PROC: B2151ZZ Fluoroscopy of Left Heart using Low Osmolar Contrast (ICD-10-PCS; 2020-08-17)
DX: I50.43 Acute on chronic combined systolic (congestive) and diastolic (congestive) heart failure (principal); J96.90 Respiratory failure, unspecified, unspecified whether with hypoxia or hypercapnia; D68.69 Other thrombophilia; I31.3 Pericardial effusion (noninflammatory); I42.0 Dilated cardiomyopathy; I47.1 Supraventricular tachycardia; I48.92 Unspecified atrial flutter; J98.11 Atelectasis; Q21.1 Atrial septal defect; Z99.11 Dependence on respirator [ventilator] status; D15.1 Benign neoplasm of heart; D72.829 Elevated white blood cell count, unspecified; E83.42 Hypomagnesemia; F17.210 Nicotine dependence, cigarettes, uncomplicated; F41.9 Anxiety disorder, unspecified; I34.0 Nonrheumatic mitral (valve) insufficiency; I48.0 Paroxysmal atrial fibrillation; I50.82 Biventricular heart failure; Z20.822 Contact with and (suspected) exposure to COVID-19; Z79.899 Other long term (current) drug therapy; Z95.2 Presence of prosthetic heart valve; R73.9 Hyperglycemia, unspecified
CPT/HCPCS: 36415; 36600; 84145; 87400; 93458; 96365; 96366; 99285; C8929; J3490; S0017; 71045; 71046; 71275; 80048; 80053; 80061; 80307; 81001; 82040; 82330; 82800; 82803; 82810; 82947; 82962; 83036; 83735; 83880; 84100; 84132; 84295; 84443; 84484; 85014; 85018; 85025; 85027; 85347; 85610; 85730; 86850; 86900; 86923; 87081; 87086; 87635; 88305; 93005; 93312; 93321; 93325; 93880; 94002; 99156; C1769; C1894; G0378; J0171; J0583; J0697; J1644; J1815; J2250; J2704; J2720; J3010; J3370; J3475; J3480; J7060; P9045; Q9957; Q9967; C1760; J0282; J1940; J2370; J7030; J7050; U0003

== ENCOUNTER 2020-08-27 06:07 | Outpatient (CLI) | payer MEDICAID ==
[~2020-08-27] VITALS: Ht 180.3 cm; Wt 97.7 kg
[~2020-08-27 06:07] MED LIST: ASPI81TA45 PO; FURO-93 PO; METO25TA35 PO; MORP-29 PO; POTA10TA5 PO; SPIR25TA PO; WARF2.5T32 PO
[2020-08-27 06:25] VITALS: BP 106/68
[2020-08-27] MEDS ORDERED: SODIUM CHLORIDE 0.9% 1,000 ML IV SCH (06:30)
[2020-08-27] MEDS ORDERED: AMIO200T42 PO (07:00)
[2020-08-27] MEDS ORDERED: WARF-36 PO (07:01)
[2020-08-27] MEDS ORDERED: ACET-1600 PO (07:02)
[2020-08-27 07:06] LABS: INTERNATIONAL NORMALIZED RATIO 1.57 (0.93-1.1); PROTHROMBIN TIME 16.6 Seconds (9.6-11.5)
[2020-08-27 07:10] LABS: ANION GAP 4 mmol/L (5-15); CALCIUM 9.6 mg/dL (8.5-10.1); CHLORIDE 105 mmol/L (98-107)
== END 2020-08-27 23:59 | disposition home or self-care (01) ==
LOC: CACL 06:07 → EDSTATUS 07:30 → CACL 07:37
PROVIDERS: ATTEND Internal Medicine Clinical Cardiac Electrophysiology
DX: Z01.818 Encounter for other preprocedural examination (principal); I48.92 Unspecified atrial flutter; R00.1 Bradycardia, unspecified; Z20.822 Contact with and (suspected) exposure to COVID-19
CPT/HCPCS: 36415; 80048; 85610; 87635; 92960; 93005

== ENCOUNTER 2020-09-14 06:02 | Day surgery (SDC) | payer MEDICAID ==
[~2020-09-14] VITALS: Ht 180.3 cm; Wt 100.0 kg
[~2020-09-14 06:02] MED LIST changes: +ACET-1600 PO; +AMIO200T42 PO; +WARF-36 PO
[2020-09-14 06:23] VITALS: BP 90/69
[2020-09-14] MEDS ORDERED: SODIUM CHLORIDE 0.9% 1,000 ML IV SCH (06:30)
[2020-09-14] MEDS ORDERED: MORP-29 PO (06:33)
[2020-09-14 07:08] LABS: INTERNATIONAL NORMALIZED RATIO 3.62 (0.93-1.1); PROTHROMBIN TIME 37.8 Seconds (9.6-11.5)
[2020-09-14 07:11] LABS: ANION GAP 7 mmol/L (5-15); CALCIUM 8.9 mg/dL (8.5-10.1); CHLORIDE 112 mmol/L (98-107); CREATININE 1.18 mg/dL (0.7-1.3)
[2020-09-14] MEDS ORDERED: PROPOFOL 10 MG/ML, 20ML ONE (07:33)
== END 2020-09-14 08:54 | disposition home or self-care (01) ==
LOC: CACL 06:02
PROVIDERS: ATTEND Internal Medicine Clinical Cardiac Electrophysiology
DX: I48.4 Atypical atrial flutter (principal); I42.9 Cardiomyopathy, unspecified; D15.1 Benign neoplasm of heart; F17.210 Nicotine dependence, cigarettes, uncomplicated; Z88.8 Allergy status to other drugs, medicaments and biological substances; Z79.82 Long term (current) use of aspirin; Z79.899 Other long term (current) drug therapy; Z20.822 Contact with and (suspected) exposure to COVID-19; Z72.89 Other problems related to lifestyle; Z98.890 Other specified postprocedural states
CPT/HCPCS: 36415; 80048; 85610; 87635; 92960; 93005; 93312; 93325; J2704

== ENCOUNTER 2020-11-14 07:41 | Emergency (ER) | payer MEDICAID ==
[~2020-11-14] VITALS: Ht 180.3 cm; Wt 108.1 kg
[2020-11-14 08:34] LABS: BASOPHILS % (AUTO) 0 % (0-1); EOSINOPHILS % (AUTO) 1 % (1-7); LYMPHOCYTES % (AUTO) 27 % (22-44); MEAN CORPUSCULAR HEMOGLOBIN 26.3 pg (27.5-34.5); MEAN CORPUSCULAR HGB CONC 32.8 g/dL (33.2-36.2); MEAN PLATELET VOLUME 8.2 fL (7.4-10.4); MONOCYTES % (AUTO) 6 % (2-9); NEUTROPHILS % (AUTO) 65 % (42-75); PLATELET COUNT 319 x10^3/uL (130-400); RED BLOOD COUNT 5.42 x10^6/uL (4.38-5.82); RED CELL DISTRIBUTION WIDTH 16.2 % (9.4-14.8)
[2020-11-14 08:40] LABS: ALANINE AMINOTRANSFERASE 28 U/L (12-78); ALBUMIN 3.3 g/dL (3.4-5.0); CALCIUM 8.8 mg/dL (8.5-10.1); CHLORIDE 111 mmol/L (98-107); CREATININE 1.15 mg/dL (0.7-1.3); MD NO
[2020-11-14 08:41] LABS: INTERNATIONAL NORMALIZED RATIO 1.17 (0.93-1.1); PROTHROMBIN TIME 12.5 Seconds (9.6-11.5)
--- NOTE | 2020-11-14 08:43 | NUR ---
agile project manager: pt moved from lobby to room 19
[2020-11-14 08:45] LABS: ALKALINE PHOSPHATASE 78 U/L (45-117); BILIRUBIN,TOTAL 0.3 mg/dL (0.2-1.0); TOTAL PROTEIN 7.1 g/dL (6.4-8.2); TROPONIN I < 0.015 ng/mL (0.000-0.045)
[2020-11-14 08:54] LABS: ANION GAP 5 mmol/L (5-15)
--- NOTE | 2020-11-14 09:02 | NUR ---
BLOOD PRESSURE HIGH THIS MORNING AT HOME 170/120, PATIENT REPORTS "FEELING WEIRD" THE LAST 2 DAYS, C/O INCREASED FATIGUE AND DIZZINESS. DENIES CHEST PAIN. HX:OPEN HEART SURGERY 08/15/2020 HX OF CARDIVERSION RECENTLY POOR HISTORIAN HASN'T HAD INR CHECKED, ON 5MG OF WARFARIN EACH DAY HR 130, SBP 155 ALSO WITH COUGH-YELLOW SPUTUM
[2020-11-14] MEDS ORDERED: METOPROLOL 1 MG/ML, 5ML ONE (09:09)
[2020-11-14] MEDS: METOPROLOL 1 MG/ML, 5ML IVPush PRN ×3 (09:21→10:35)
--- NOTE | 2020-11-14 09:21 | NUR ---
PIV PLACED. MEDICATED PER EMAR
--- NOTE | 2020-11-14 09:40 | NUR ---
NO CHANGE IN HEART RATE AFTER LOPRESSOR DOSES X2 (5MG EACH FOR A TOTAL OF 10MG). ERP MADE AWARENOW 132/114
--- NOTE | 2020-11-14 10:35 | NUR ---
POC REVIWEED WITH ERP AGAIN (NO CHANGE IN PALPITATIONS/OR HEART RATE (STILL 130) ERP WOULD LIKE 3RD DOSE OF LOPRESSOR THEN WILL RE-EVAL
[2020-11-14] MEDS ORDERED: AMIODARONE 150 MG in DEXTROSE 5% 100 ML IV ONE ×2 (11:30→12:30)
[2020-11-14] MEDS ORDERED: FILTER 0.22 MICRON IV ONE (11:30)
--- NOTE | 2020-11-14 11:34 | NUR ---
AMIO BOLUS STARTED PER EMAR. PC CLARIFIED WITH ERP (NOT TO ORDER [place] DOSE. ONLY TO ADMIN LOADING DOSE THEN RE-EVAL).
--- NOTE | 2020-11-14 12:38 | NUR ---
CHERISE ORDERED FROM PHARMACY
--- NOTE | 2020-11-14 13:16 | NUR ---
REPEAT DOSE OF AMIO ADMINISTERED PER EMAR
[2020-11-14] MEDS ORDERED: PROPOFOL 10 MG/ML, 20ML ONE (14:19)
[2020-11-14] MEDS ORDERED: PROPOFOL 10 MG/ML, 20ML IVPush ONE ×2 (14:30→16:30)
[2020-11-14] MEDS ORDERED: APIXABAN 5 MG TABLET PO ONE (15:30)
[2020-11-14 16:21] VITALS: BP 139/79
== END 2020-11-14 16:52 | disposition home or self-care (01) ==
LOC: ED 09:28
DX: I48.92 Unspecified atrial flutter (principal); I11.0 Hypertensive heart disease with heart failure; I50.9 Heart failure, unspecified; R00.0 Tachycardia, unspecified; R05 Cough; I10 Essential (primary) hypertension; R07.89 Other chest pain
CPT/HCPCS: 36415; 71045; 80053; 83880; 84484; 85025; 85610; 92960; 93005; 96365; 96375; 96376; 99285; J0282

== ENCOUNTER → 2020-12-21 | Outpatient (CLI) | payer MEDICAID | END | disposition home or self-care (01) | LOC: CFH 12:32 | PROVIDERS: ATTEND Internal Medicine Clinical Cardiac Electrophysiology | DX: I08.8 Other rheumatic multiple valve diseases (principal); I42.9 Cardiomyopathy, unspecified | CPT/HCPCS: 93306 ==